=== PATIENT | female | born 1975 | race Caucasian/White ===

== ENCOUNTER 2016-10-30 14:19 | Emergency (ER) | payer OTHER ==
[2016-10-30 14:56] VITALS: BP 145/59
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
== END 2016-10-30 15:17 | disposition home or self-care (01) ==
LOC: UCEAST 14:19
DX: M70.22 Olecranon bursitis, left elbow (principal); Y93.9 Activity, unspecified
CPT/HCPCS: 99211; G0463

== ENCOUNTER 2018-01-19 21:20 | Emergency (ER) | payer OTHER ==
[2018-01-19] MEDS ORDERED: Tetan/Diph/Pertus SYR(Tdap)* 0.5 ML SYR(BOOSTRIX) use SYR IM ONE (21:26)
[2018-01-19 21:31] VITALS: BP 119/74
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
== END 2018-01-19 22:15 | disposition home or self-care (01) ==
LOC: UCEAST 21:20
DX: S91.332A Puncture wound without foreign body, left foot, initial encounter (principal); W45.0XXA Nail entering through skin, initial encounter; Y93.9 Activity, unspecified; Y92.9 Unspecified place or not applicable; Z23 Encounter for immunization
CPT/HCPCS: 90471; 90715; 99211; G0463